=== PATIENT | male | born 1940 | race Asian ===

== ENCOUNTER 2021-11-30 09:02 | Outpatient (CLI) | payer OTHER | END 2021-11-30 21:44 | disposition home or self-care (01) | LOC: MCT 09:02 | PROVIDERS: ATTEND Family Medicine | DX: J32.0 Chronic maxillary sinusitis (principal); J32.2 Chronic ethmoidal sinusitis; I62.00 Nontraumatic subdural hemorrhage, unspecified | CPT/HCPCS: 70450 ==

== ENCOUNTER 2022-07-08 18:22 | Inpatient (IN) | payer OTHER ==
[~2022-07-08] VITALS: Ht 170.2 cm; Wt 75.9 kg
[2022-07-08] MEDS ORDERED: ACETAMINOPHEN 650 MG SUPP RC ONE (18:31)
[2022-07-08 18:34] VITALS: BP 128/75
[2022-07-08] MEDS ORDERED: NACL 0.9% 2,000 ML IV SCH (18:35)
[2022-07-08] MEDS ORDERED: cefTRIAXone 1,000 MG in DEXT 5% MINI-BAG PLUS 50 ML IV ONE (18:35)
[2022-07-08 19:18] LABS: BASOPHILS % (AUTO) 0.2 % (0.0-2.0); HEMATOCRIT 20.6 % (36-52); HEMOGLOBIN 7.1 g/dL (12.0-18.0); LYMPHOCYTES # (AUTO) 0.4 K/uL (2.0-11.5); LYMPHOCYTES % (AUTO) 7.9 % (20.5-51.1); MEAN CORPUSCULAR HEMOGLOBIN 29 pg (27-31); MEAN CORPUSCULAR HGB CONC 34 g/dL (33-37); MEAN CORPUSCULAR VOLUME 85.9 fL (80-94); MONOCYTES # (AUTO) 0.4 K/uL (0.8-1.0); NEUTROPHILS # (AUTO) 4.4 K/uL (1.8-7.7); NEUTROPHILS % (AUTO) 84.9 % (42.2-75.2); PLATELET COUNT (AUTO) 335 K/uL (140-450); RED CELL DISTRIBUTION WIDTH 14.7 % (11.6-13.7); WHITE BLOOD COUNT (AUTO) 5.2 K/uL (4.8-10.8)
[2022-07-08 19:50] LABS: ALBUMIN 2.6 g/dL (3.4-5.0); ANION GAP 21.3 (8-16); ASPARTATE AMINOTRANSFERASE 17 U/L (15-37); CHLORIDE 101 mmol/L (98-107); CREATININE 0.9 mg/dL (0.6-1.3); GLUCOSE 210 mg/dL (74-106); POTASSIUM 4.3 mmol/L (3.5-5.1); SODIUM SERUM 136 mmol/L (136-145); TOTAL BILIRUBIN 0.9 mg/dL (0.0-1.0); UREA NITROGEN, BLOOD 52 mg/dL (7-18)
[2022-07-08] MEDS ORDERED: cefTRIAXone 1,000 MG VIAL ONE (20:03)
[2022-07-08] MEDS ORDERED: NACL 0.9% 1,000 ML IV ONE (20:50)
[2022-07-08] MEDS ORDERED: DOCUSATE SODIUM 100 MG GELCAP PO PRN (21:35)
[2022-07-08] MEDS ORDERED: MORPHINE SULFATE 2 MG/ML SYR IVP PRN (21:35)
[2022-07-08] MEDS ORDERED: ZOLPIDEM 10 MG TAB PO PRN (21:35)
[2022-07-08] MEDS ORDERED: ACETAMINOPHEN 325 MG TAB PO PRN (21:35)
[2022-07-08] MEDS ORDERED: POTASSIUM CHLORIDE 10 MEQ TABER PO PRN (21:35)
[2022-07-08] MEDS ORDERED: MAG SULF 2000 MG/WATER PREMIX 50 ML IV PRN (21:35)
[2022-07-08] MEDS ORDERED: ONDANSETRON 4 MG/2 ML VIAL IVP PRN (21:35)
[2022-07-08 23:13] LABS: APPEARANCE,URINE CLEAR (CLEAR); BILIRUBIN,URINE NEGATIVE (NEGATIVE); BLOOD, URINE 2+ (NEGATIVE); COLOR,URINE YELLOW (YELLOW); LEUKOCYTE ESTERASE ,URINE 1+ (NEGATIVE); NITRITE, URINE NEGATIVE (NEGATIVE); PH,URINE 8.5 (5.0-9.0); UGLUCOSE TRACE (NEGATIVE)
[2022-07-08 23:30] LABS: RBC,URINE 0-5 /HPF (0-5)
[2022-07-09] MEDS ORDERED: ESCI10TA PO (05:14)
[2022-07-09] MEDS ORDERED: ACET-2619 PO (05:31)
[2022-07-09] MEDS ORDERED: FLEPED RC (05:31)
[2022-07-09] MEDS ORDERED: DEXT31GE2 PO (05:31)
[2022-07-09] MEDS ORDERED: AMLO10TA89 PO (05:31)
[2022-07-09] MEDS ORDERED: ATOR10TA PO (05:31)
[2022-07-09] MEDS ORDERED: LOSA100T1 PO (05:31)
[2022-07-09] MEDS ORDERED: METF-1139 PO (05:31)
[2022-07-09] MEDS ORDERED: D50SYR IV (05:31)
[2022-07-09] MEDS ORDERED: ASCO500T95 PO (05:31)
[2022-07-09] MEDS ORDERED: TRAV5SOL OP (05:31)
[2022-07-09] MEDS ORDERED: MULT-1328 PO (05:31)
[2022-07-09] MEDS ORDERED: BISA-213 RC (05:31)
[2022-07-09] MEDS ORDERED: GLIP10TE PO (05:31)
[2022-07-09] MEDS ORDERED: TAMS0.4C96 PO (05:31)
[2022-07-09] MEDS ORDERED: FERR325E14 PO (05:31)
[2022-07-09] MEDS ORDERED: MAGN400S60 PO (05:31)
[2022-07-09] MEDS ORDERED: DOCU-299 PO (05:31)
[2022-07-09] MEDS ORDERED: ZINC-31 (05:31)
[2022-07-09] MEDS ORDERED: ALOG1TAB6 PO (05:31)
[2022-07-09] MEDS ORDERED: NUTR30LI3 PO (05:31)
[2022-07-09] MEDS ORDERED: PIPERACILLIN/TAZOBACTAM 2.25 GM VIAL IV ONE (05:50)
[2022-07-09] MEDS: PIPERACILLIN/TAZOBACTAM 2.25 GM in DEXTROSE 5% 50 ML IV SCH ×3 (05:57→20:28)
[2022-07-09] MEDS ORDERED: LORazepam 2 MG/ML VIAL IVP SCH (06:40)
[2022-07-09] MEDS ORDERED: DEXTROSE 50% 50 ML SYR IVP PRN (07:30)
[2022-07-09 07:42] LABS: HEMATOCRIT 27.9 % (36-52); HEMOGLOBIN 9.4 g/dL (12.0-18.0); LYMPHOCYTES # (AUTO) 0.5 K/uL (2.0-11.5); LYMPHOCYTES % (AUTO) 4.8 % (20.5-51.1); MEAN CORPUSCULAR HEMOGLOBIN 29 pg (27-31); MEAN CORPUSCULAR HGB CONC 34 g/dL (33-37); MEAN CORPUSCULAR VOLUME 85.1 fL (80-94); MONOCYTES # (AUTO) 0.3 K/uL (0.8-1.0); MONOCYTES % (AUTO) 3.5 % (1.7-9.3); NEUTROPHILS # (AUTO) 8.8 K/uL (1.8-7.7); NEUTROPHILS % (AUTO) 91.7 % (42.2-75.2); PLATELET COUNT (AUTO) 333 K/uL (140-450); RED BLOOD CELL COUNT(AUTO) 3.27 MIL/uL (4.20-6.10); WHITE BLOOD COUNT (AUTO) 9.6 K/uL (4.8-10.8)
[2022-07-09 08:07] LABS: ANION GAP 23.8 (8-16); CARBON DIOXIDE 14.9 mmol/L (21-32); CHLORIDE 106 mmol/L (98-107); CREATININE 0.8 mg/dL (0.6-1.3); GLUCOSE 259 mg/dL (74-106); POTASSIUM 3.7 mmol/L (3.5-5.1); SODIUM SERUM 141 mmol/L (136-145); UREA NITROGEN, BLOOD 42 mg/dL (7-18)
[2022-07-09] MEDS ORDERED: ESCITALOPRAM 20 MG TAB PO SCH (09:00)
[2022-07-09] MEDS: NACL 0.9% 1,000 ML IV SCH ×2 (09:10→17:27)
[2022-07-09] MEDS: BLOOD GLUCOSE MONITORING 1 DEV DEV FS SCH ×4 (09:10→20:27)
[2022-07-09] MEDS: DOCUSATE SODIUM 100 MG GELCAP PO SCH ×2 (10:08→20:28)
[2022-07-09 12:00] VITALS: BP 96/60
[2022-07-09] MEDS: INSULIN LISPRO SLIDING SCALE 100 UNITS/ML VIAL SUBQ PRN ×3 (12:09→20:36)
[2022-07-09] MEDS ORDERED: VANCOMYCIN PER PHARMACY MC PRN (15:55)
[2022-07-09 16:00] VITALS: BP 97/58
[2022-07-09] MEDS ORDERED: MAG SULF 2000 MG/WATER PREMIX 50 ML IV SCH (16:20)
[2022-07-09] MEDS: VANCOMYCIN 1,000 MG in DEXTROSE 5% 250 ML IV SCH (17:01)
[2022-07-09 20:00] VITALS: BP 98/50
[2022-07-09] MEDS: TAMSULOSIN 0.4 MG CAP PO SCH (20:29)
[2022-07-09] MEDS: DEXT 5% / NACL 0.9% 1,000 ML IV SCH (20:53)
[2022-07-10] VITALS: BP 99/56
[2022-07-10 04:00] VITALS: BP 101/55
[2022-07-10] MEDS: PIPERACILLIN/TAZOBACTAM 2.25 GM in DEXTROSE 5% 50 ML IV SCH ×3 (04:40→23:33)
[2022-07-10] MEDS: BLOOD GLUCOSE MONITORING 1 DEV DEV FS SCH ×4 (06:37→21:00)
[2022-07-10] MEDS: INSULIN LISPRO SLIDING SCALE 100 UNITS/ML VIAL SUBQ PRN ×3 (06:38→16:57)
[2022-07-10] MEDS ORDERED: ALBUTEROL SULFATE/IPRATROPIU 3 ML SOL IH PRN (07:00)
[2022-07-10] MEDS: ALBUTEROL SULFATE/IPRATROPIU 3 ML SOL IH SCH ×3 (07:27→19:39)
[2022-07-10 07:28] LABS: ANION GAP 16.4 (8-16); BASOPHILS % (AUTO) 0.2 % (0.0-2.0); CARBON DIOXIDE 20.7 mmol/L (21-32); CHLORIDE 110 mmol/L (98-107); CREATININE 0.7 mg/dL (0.6-1.3); EOSINOPHILS % (AUTO) 0.3 % (0.0-4.0); GLUCOSE 214 mg/dL (74-106); HEMATOCRIT 25.4 % (36-52); HEMOGLOBIN 8.6 g/dL (12.0-18.0); LYMPHOCYTES # (AUTO) 0.6 K/uL (2.0-11.5); LYMPHOCYTES % (AUTO) 4.7 % (20.5-51.1); MEAN CORPUSCULAR HEMOGLOBIN 29 pg (27-31); MEAN CORPUSCULAR HGB CONC 34 g/dL (33-37); MEAN CORPUSCULAR VOLUME 84.9 fL (80-94); MONOCYTES # (AUTO) 0.6 K/uL (0.8-1.0); MONOCYTES % (AUTO) 4.5 % (1.7-9.3); NEUTROPHILS # (AUTO) 12.1 K/uL (1.8-7.7); NEUTROPHILS % (AUTO) 90.3 % (42.2-75.2); PLATELET COUNT (AUTO) 326 K/uL (140-450); POTASSIUM 3.1 mmol/L (3.5-5.1); RED BLOOD CELL COUNT(AUTO) 2.99 MIL/uL (4.20-6.10); SODIUM SERUM 144 mmol/L (136-145); UREA NITROGEN, BLOOD 34 mg/dL (7-18); WHITE BLOOD COUNT (AUTO) 13.4 K/uL (4.8-10.8)
[2022-07-10 08:00] VITALS: BP 118/73
[2022-07-10] MEDS ORDERED: DEXTROSE 50% 50 ML SYR IVP PRN (10:20)
[2022-07-10] MEDS ORDERED: KCL 20 MEQ/WATER INJ PREMIX 100 ML IV ONE (10:20)
[2022-07-10] MEDS: KCL 20 MEQ/WATER INJ PREMIX 100 ML IV SCH ×2 (10:30→10:40)
[2022-07-10] MEDS ORDERED: BLOOD GLUCOSE MONITORING 1 DEV DEV FS SCH (11:30)
[2022-07-10 12:00] VITALS: BP 122/74
[2022-07-10] MEDS ORDERED: DOCUSATE 100 MG/10 ML UDC PO PRN (12:05)
[2022-07-10 16:00] VITALS: BP 111/61
[2022-07-10] MEDS: DEXT 5% / NACL 0.9% 1,000 ML IV SCH (16:55)
[2022-07-10] MEDS: VANCOMYCIN 1,000 MG in DEXTROSE 5% 250 ML IV SCH (17:49)
[2022-07-10 20:00] VITALS: BP 111/67
[2022-07-10] MEDS: TAMSULOSIN 0.4 MG CAP PO SCH (21:00)
[2022-07-10] MEDS: DOCUSATE 100 MG/10 ML UDC GT SCH (21:00)
[2022-07-10] MEDS ORDERED: ESCITALOPRAM 20 MG TAB PO SCH (21:00)
[2022-07-11] VITALS: BP 114/78
[2022-07-11] MEDS: INSULIN LISPRO SLIDING SCALE 100 UNITS/ML VIAL SUBQ PRN ×5 (00:23→21:17)
[2022-07-11 04:00] VITALS: BP 120/82
[2022-07-11] MEDS: PIPERACILLIN/TAZOBACTAM 2.25 GM in DEXTROSE 5% 50 ML IV SCH ×3 (05:37→21:04)
[2022-07-11] MEDS: BLOOD GLUCOSE MONITORING 1 DEV DEV FS SCH ×4 (05:44→21:17)
[2022-07-11 07:18] LABS: BASOPHILS % (AUTO) 0.1 % (0.0-2.0); EOSINOPHILS % (AUTO) 0.2 % (0.0-4.0); HEMATOCRIT 26.4 % (36-52); HEMOGLOBIN 8.9 g/dL (12.0-18.0); LYMPHOCYTES # (AUTO) 0.6 K/uL (2.0-11.5); LYMPHOCYTES % (AUTO) 5.5 % (20.5-51.1); MEAN CORPUSCULAR HEMOGLOBIN 28 pg (27-31); MEAN CORPUSCULAR HGB CONC 34 g/dL (33-37); MEAN CORPUSCULAR VOLUME 84.5 fL (80-94); MONOCYTES # (AUTO) 0.6 K/uL (0.8-1.0); MONOCYTES % (AUTO) 5.1 % (1.7-9.3); NEUTROPHILS # (AUTO) 10.2 K/uL (1.8-7.7); NEUTROPHILS % (AUTO) 89.1 % (42.2-75.2); PLATELET COUNT (AUTO) 323 K/uL (140-450); RED BLOOD CELL COUNT(AUTO) 3.12 MIL/uL (4.20-6.10); WHITE BLOOD COUNT (AUTO) 11.5 K/uL (4.8-10.8)
[2022-07-11 07:30] LABS: ANION GAP 16.9 (8-16); CHLORIDE 111 mmol/L (98-107); CREATININE 0.5 mg/dL (0.6-1.3); GLUCOSE 181 mg/dL (74-106); SODIUM SERUM 147 mmol/L (136-145); UREA NITROGEN, BLOOD 19 mg/dL (7-18)
[2022-07-11 07:36] LABS: POTASSIUM 2.9 mmol/L (3.5-5.1)
[2022-07-11] MEDS: ALBUTEROL SULFATE/IPRATROPIU 3 ML SOL IH SCH ×3 (07:43→19:28)
[2022-07-11] MEDS: DOCUSATE 100 MG/10 ML UDC GT SCH ×2 (09:00→21:00)
[2022-07-11] MEDS: DEXT 5% / NACL 0.9% 1,000 ML IV SCH (10:39)
[2022-07-11] MEDS ORDERED: POTASSIUM CHLORIDE 40 MEQ, LIDOCAINE 1% 25 MG in NACL 0.9% 250 ML IV SCH (14:20)
[2022-07-11 14:58] LABS: ANION GAP 14.8 (8-16); CHLORIDE 112 mmol/L (98-107); CREATININE 0.7 mg/dL (0.6-1.3); GLUCOSE 225 mg/dL (74-106); SODIUM SERUM 148 mmol/L (136-145); UREA NITROGEN, BLOOD 17 mg/dL (7-18)
[2022-07-11 15:34] LABS: POTASSIUM 2.8 mmol/L (3.5-5.1)
[2022-07-11 16:00] VITALS: BP 120/70
[2022-07-11] MEDS: VANCOMYCIN 1,000 MG in DEXTROSE 5% 250 ML IV SCH (17:08)
[2022-07-11 20:00] VITALS: BP 105/53
[2022-07-11] MEDS: TAMSULOSIN 0.4 MG CAP PO SCH (21:00)
[2022-07-11] MEDS: FUROSEMIDE 20 MG/2 ML VIAL IVP SCH (21:00)
[2022-07-12] VITALS: BP 145/64
[2022-07-12 04:00] VITALS: BP 130/70
[2022-07-12] MEDS: PIPERACILLIN/TAZOBACTAM 2.25 GM in DEXTROSE 5% 50 ML IV SCH ×3 (04:28→21:20)
[2022-07-12 07:07] LABS: HEMATOCRIT 27.4 % (36-52); HEMOGLOBIN 9.3 g/dL (12.0-18.0); MEAN CORPUSCULAR HEMOGLOBIN 29 pg (27-31); MEAN CORPUSCULAR HGB CONC 34 g/dL (33-37); PLATELET COUNT (AUTO) 318 K/uL (140-450); RED BLOOD CELL COUNT(AUTO) 3.23 MIL/uL (4.20-6.10); RED CELL DISTRIBUTION WIDTH 15.4 % (11.6-13.7); WHITE BLOOD COUNT (AUTO) 7.7 K/uL (4.8-10.8)
[2022-07-12 07:12] LABS: ANION GAP 12.7 (8-16); CARBON DIOXIDE 22.5 mmol/L (21-32); CHLORIDE 113 mmol/L (98-107); CREATININE 0.6 mg/dL (0.6-1.3); GLUCOSE 208 mg/dL (74-106); POTASSIUM 3.2 mmol/L (3.5-5.1); SODIUM SERUM 145 mmol/L (136-145); UREA NITROGEN, BLOOD 12 mg/dL (7-18)
[2022-07-12] MEDS: ALBUTEROL SULFATE/IPRATROPIU 3 ML SOL IH SCH ×3 (07:27→19:00)
[2022-07-12] MEDS: BLOOD GLUCOSE MONITORING 1 DEV DEV FS SCH ×4 (07:40→21:56)
[2022-07-12] MEDS: INSULIN LISPRO SLIDING SCALE 100 UNITS/ML VIAL SUBQ PRN ×3 (07:41→20:44)
[2022-07-12 08:00] VITALS: BP 130/70
[2022-07-12 08:22] LABS: BASOPHILS % (AUTO) 0.2 % (0.0-2.0); EOSINOPHILS % (AUTO) 0.3 % (0.0-4.0); LYMPHOCYTES # (AUTO) 0.6 K/uL (2.0-11.5); LYMPHOCYTES % (AUTO) 7.8 % (20.5-51.1); MONOCYTES # (AUTO) 0.7 K/uL (0.8-1.0); MONOCYTES % (AUTO) 8.5 % (1.7-9.3); NEUTROPHILS # (AUTO) 6.5 K/uL (1.8-7.7); NEUTROPHILS % (AUTO) 83.2 % (42.2-75.2)
[2022-07-12 08:27] LABS: LYMPHOCYTES % (MANUAL) 12 % (20-46); MONOCYTES % (MANUAL) 10 % (5-12)
[2022-07-12] MEDS: DOCUSATE 100 MG/10 ML UDC GT SCH ×2 (08:56→09:05)
[2022-07-12] MEDS: FUROSEMIDE 20 MG/2 ML VIAL IVP SCH ×2 (08:58→21:54)
[2022-07-12] MEDS: DEXT 5% / NACL 0.9% 1,000 ML IV SCH (08:59)
[2022-07-12] MEDS: LORazepam 2 MG/ML VIAL IVP PRN (11:27)
[2022-07-12] MEDS ORDERED: POTASSIUM CHLORIDE 40 MEQ, LIDOCAINE 1% 25 MG in NACL 0.9% 250 ML IV SCH (11:30)
[2022-07-12 12:00] VITALS: BP 135/76
[2022-07-12] MEDS ORDERED: ACETYLCYSTEINE 20% (200 MG/ML) 200 MG/ML VIAL INH SCH (13:00)
[2022-07-12 16:50] VITALS: BP 138/71
[2022-07-12] MEDS: VANCOMYCIN 1,000 MG in DEXTROSE 5% 250 ML IV SCH (17:00)
[2022-07-12] MEDS: ACETYLCYSTEINE 20% (200 MG/ML) 200 MG/ML VIAL INH SCH (19:30)
[2022-07-12 20:00] VITALS: BP 125/65
[2022-07-12] MEDS: TAMSULOSIN 0.4 MG CAP PO SCH (21:00)
[2022-07-13 04:00] VITALS: BP 129/74
[2022-07-13] MEDS: DEXT 5% / NACL 0.9% 1,000 ML IV SCH (05:11)
[2022-07-13] MEDS: PIPERACILLIN/TAZOBACTAM 2.25 GM in DEXTROSE 5% 50 ML IV SCH ×2 (05:20→13:00)
[2022-07-13] MEDS: INSULIN LISPRO SLIDING SCALE 100 UNITS/ML VIAL SUBQ PRN (06:38)
[2022-07-13] MEDS: BLOOD GLUCOSE MONITORING 1 DEV DEV FS SCH ×4 (06:38→22:00)
[2022-07-13] MEDS: ACETYLCYSTEINE 20% (200 MG/ML) 200 MG/ML VIAL INH SCH ×2 (06:50→19:30)
[2022-07-13] MEDS: ALBUTEROL SULFATE/IPRATROPIU 3 ML SOL IH SCH ×3 (06:50→19:00)
[2022-07-13 07:52] LABS: BASOPHILS % (AUTO) 0.2 % (0.0-2.0); EOSINOPHILS # (AUTO) 0.1 K/uL (0-0.4); EOSINOPHILS % (AUTO) 0.6 % (0.0-4.0); HEMATOCRIT 29.2 % (36-52); HEMOGLOBIN 9.8 g/dL (12.0-18.0); LYMPHOCYTES # (AUTO) 0.8 K/uL (2.0-11.5); LYMPHOCYTES % (AUTO) 9.2 % (20.5-51.1); MEAN CORPUSCULAR HEMOGLOBIN 28 pg (27-31); MEAN CORPUSCULAR HGB CONC 34 g/dL (33-37); MONOCYTES # (AUTO) 0.9 K/uL (0.8-1.0); MONOCYTES % (AUTO) 10.9 % (1.7-9.3); NEUTROPHILS # (AUTO) 6.8 K/uL (1.8-7.7); NEUTROPHILS % (AUTO) 79.1 % (42.2-75.2); PLATELET COUNT (AUTO) 323 K/uL (140-450); RED BLOOD CELL COUNT(AUTO) 3.47 MIL/uL (4.20-6.10); RED CELL DISTRIBUTION WIDTH 15.3 % (11.6-13.7); WHITE BLOOD COUNT (AUTO) 8.6 K/uL (4.8-10.8)
[2022-07-13 08:08] LABS: ANION GAP 15.4 (8-16); CARBON DIOXIDE 24.4 mmol/L (21-32); CHLORIDE 111 mmol/L (98-107); CREATININE 0.7 mg/dL (0.6-1.3); GLUCOSE 174 mg/dL (74-106); SODIUM SERUM 148 mmol/L (136-145); UREA NITROGEN, BLOOD 10 mg/dL (7-18)
[2022-07-13 08:12] LABS: POTASSIUM 2.8 mmol/L (3.5-5.1)
[2022-07-13] MEDS: DOCUSATE 100 MG/10 ML UDC GT SCH ×2 (09:00→22:00)
[2022-07-13] MEDS: FUROSEMIDE 20 MG/2 ML VIAL IVP SCH ×2 (09:30→22:46)
[2022-07-13] MEDS ORDERED: KCL 20 MEQ/WATER INJ PREMIX 200 ML IV SCH (14:00)
[2022-07-13] MEDS: VANCOMYCIN 1,000 MG in DEXTROSE 5% 250 ML IV SCH (17:00)
[2022-07-13 20:00] VITALS: BP 138/80
[2022-07-13] MEDS: TAMSULOSIN 0.4 MG CAP PO SCH (22:00)
[2022-07-14] MEDS: DEXT 5% / NACL 0.9% 1,000 ML IV SCH ×2 (01:14→20:15)
[2022-07-14] MEDS: INSULIN LISPRO SLIDING SCALE 100 UNITS/ML VIAL SUBQ PRN ×2 (01:48→22:44)
[2022-07-14 04:00] VITALS: BP 123/76
[2022-07-14] MEDS: BLOOD GLUCOSE MONITORING 1 DEV DEV FS SCH ×4 (06:33→21:53)
[2022-07-14] MEDS: ALBUTEROL SULFATE/IPRATROPIU 3 ML SOL IH SCH ×3 (08:09→19:44)
[2022-07-14] MEDS: ACETYLCYSTEINE 20% (200 MG/ML) 200 MG/ML VIAL INH SCH ×2 (08:10→19:44)
[2022-07-14] MEDS: DOCUSATE 100 MG/10 ML UDC GT SCH ×2 (09:45→21:00)
[2022-07-14] MEDS: FUROSEMIDE 20 MG/2 ML VIAL IVP SCH ×2 (09:50→21:19)
[2022-07-14 11:47] LABS: ANION GAP 15.4 (8-16); CARBON DIOXIDE 27.5 mmol/L (21-32); CHLORIDE 111 mmol/L (98-107); CREATININE 0.6 mg/dL (0.6-1.3); GLUCOSE 129 mg/dL (74-106); SODIUM SERUM 151 mmol/L (136-145); UREA NITROGEN, BLOOD 10 mg/dL (7-18)
[2022-07-14 12:10] LABS: POTASSIUM 2.9 mmol/L (3.5-5.1)
[2022-07-14] MEDS ORDERED: VANCOMYCIN 1,000 MG in DEXTROSE 5% 250 ML IV SCH (17:00)
[2022-07-14 20:00] VITALS: BP 139/70
[2022-07-14] MEDS: TAMSULOSIN 0.4 MG CAP PO SCH (21:00)
[2022-07-14] MEDS ORDERED: PIPERACILLIN/TAZOBACTAM 3.375 GM VIAL IV ONE (21:14)
[2022-07-14] MEDS: PIPERACILLIN/TAZOBACTAM 3.375 GM in DEXTROSE 5% 50 ML IV SCH (21:18)
[2022-07-15 04:00] VITALS: BP 135/68
[2022-07-15] MEDS ORDERED: PIPERACILLIN/TAZOBACTAM 3.375 GM VIAL IV ONE (05:41)
[2022-07-15] MEDS: PIPERACILLIN/TAZOBACTAM 3.375 GM in DEXTROSE 5% 50 ML IV SCH ×3 (05:48→21:03)
[2022-07-15] MEDS: BLOOD GLUCOSE MONITORING 1 DEV DEV FS SCH ×4 (06:41→21:34)
[2022-07-15] MEDS: INSULIN LISPRO SLIDING SCALE 100 UNITS/ML VIAL SUBQ PRN ×2 (06:42→21:38)
[2022-07-15] MEDS: ALBUTEROL SULFATE/IPRATROPIU 3 ML SOL IH SCH ×3 (07:32→19:00)
[2022-07-15] MEDS: ACETYLCYSTEINE 20% (200 MG/ML) 200 MG/ML VIAL INH SCH ×2 (07:32→19:30)
[2022-07-15 08:02] LABS: BASOPHILS % (AUTO) 0.4 % (0.0-2.0); EOSINOPHILS # (AUTO) 0.1 K/uL (0-0.4); EOSINOPHILS % (AUTO) 0.7 % (0.0-4.0); HEMATOCRIT 29.9 % (36-52); HEMOGLOBIN 10.1 g/dL (12.0-18.0); LYMPHOCYTES # (AUTO) 1.1 K/uL (2.0-11.5); LYMPHOCYTES % (AUTO) 10.9 % (20.5-51.1); MEAN CORPUSCULAR HEMOGLOBIN 29 pg (27-31); MEAN CORPUSCULAR HGB CONC 34 g/dL (33-37); MEAN CORPUSCULAR VOLUME 84.8 fL (80-94); MONOCYTES # (AUTO) 1.1 K/uL (0.8-1.0); MONOCYTES % (AUTO) 10.7 % (1.7-9.3); NEUTROPHILS % (AUTO) 77.3 % (42.2-75.2); PLATELET COUNT (AUTO) 348 K/uL (140-450); RED BLOOD CELL COUNT(AUTO) 3.53 MIL/uL (4.20-6.10); RED CELL DISTRIBUTION WIDTH 15.3 % (11.6-13.7); WHITE BLOOD COUNT (AUTO) 10.4 K/uL (4.8-10.8)
[2022-07-15 08:13] LABS: ANION GAP 17.3 (8-16); CARBON DIOXIDE 27.5 mmol/L (21-32); CHLORIDE 108 mmol/L (98-107); CREATININE 0.7 mg/dL (0.6-1.3); GLUCOSE 185 mg/dL (74-106); SODIUM SERUM 150 mmol/L (136-145); UREA NITROGEN, BLOOD 10 mg/dL (7-18)
[2022-07-15 08:27] LABS: POTASSIUM 2.8 mmol/L (3.5-5.1)
[2022-07-15] MEDS: FUROSEMIDE 20 MG/2 ML VIAL IVP SCH ×2 (08:50→21:02)
[2022-07-15] MEDS: DOCUSATE 100 MG/10 ML UDC GT SCH ×2 (08:51→21:50)
[2022-07-15] MEDS ORDERED: MAG SULF 2000 MG/WATER PREMIX 50 ML IV PRN (09:30)
[2022-07-15] MEDS ORDERED: POTASSIUM CHLORIDE 20% 40 MEQ/15 ML UDC PO PRN (09:40)
[2022-07-15] MEDS ORDERED: KCL 20 MEQ/WATER INJ PREMIX 200 ML IV SCH (15:30)
[2022-07-15] MEDS: DEXT 5% / NACL 0.9% 1,000 ML IV SCH (16:48)
[2022-07-15] MEDS: VANCOMYCIN HCL 1.25 GM in DEXTROSE 5% 250 ML IV SCH (18:00)
[2022-07-15 18:15] LABS: ANION GAP 21.2 (8-16); CARBON DIOXIDE 23.7 mmol/L (21-32); CHLORIDE 106 mmol/L (98-107); CREATININE 0.7 mg/dL (0.6-1.3); GLUCOSE 181 mg/dL (74-106); SODIUM SERUM 148 mmol/L (136-145); UREA NITROGEN, BLOOD 12 mg/dL (7-18)
[2022-07-15 18:23] LABS: POTASSIUM 2.9 mmol/L (3.5-5.1)
[2022-07-15 20:00] VITALS: BP 117/61
[2022-07-15] MEDS: TAMSULOSIN 0.4 MG CAP PO SCH (21:00)
[2022-07-16 04:00] VITALS: BP 163/84
[2022-07-16] MEDS: PIPERACILLIN/TAZOBACTAM 3.375 GM in DEXTROSE 5% 50 ML IV SCH ×3 (05:58→20:39)
[2022-07-16] MEDS: DEXT 5% / NACL 0.9% 1,000 ML IV SCH (06:05)
[2022-07-16] MEDS: BLOOD GLUCOSE MONITORING 1 DEV DEV FS SCH ×4 (06:51→20:45)
[2022-07-16] MEDS: INSULIN LISPRO SLIDING SCALE 100 UNITS/ML VIAL SUBQ PRN ×2 (06:53→12:23)
[2022-07-16] MEDS: ALBUTEROL SULFATE/IPRATROPIU 3 ML SOL IH SCH ×3 (07:20→19:46)
[2022-07-16 08:05] LABS: BASOPHILS # (AUTO) 0.1 K/uL (0.00-0.22); BASOPHILS % (AUTO) 0.5 % (0.0-2.0); EOSINOPHILS # (AUTO) 0.1 K/uL (0-0.4); EOSINOPHILS % (AUTO) 1.1 % (0.0-4.0); HEMATOCRIT 33.6 % (36-52); HEMOGLOBIN 10.9 g/dL (12.0-18.0); LYMPHOCYTES # (AUTO) 1.2 K/uL (2.0-11.5); LYMPHOCYTES % (AUTO) 9.7 % (20.5-51.1); MEAN CORPUSCULAR HEMOGLOBIN 28 pg (27-31); MEAN CORPUSCULAR HGB CONC 33 g/dL (33-37); MEAN CORPUSCULAR VOLUME 85.1 fL (80-94); MONOCYTES # (AUTO) 1.2 K/uL (0.8-1.0); MONOCYTES % (AUTO) 9.4 % (1.7-9.3); NEUTROPHILS # (AUTO) 10.2 K/uL (1.8-7.7); NEUTROPHILS % (AUTO) 79.3 % (42.2-75.2); PLATELET COUNT (AUTO) 368 K/uL (140-450); RED BLOOD CELL COUNT(AUTO) 3.95 MIL/uL (4.20-6.10); RED CELL DISTRIBUTION WIDTH 15.5 % (11.6-13.7); WHITE BLOOD COUNT (AUTO) 12.9 K/uL (4.8-10.8)
[2022-07-16 08:46] LABS: CHLORIDE 106 mmol/L (98-107); CREATININE 0.9 mg/dL (0.6-1.3); GLUCOSE 193 mg/dL (74-106); SODIUM SERUM 149 mmol/L (136-145); UREA NITROGEN, BLOOD 11 mg/dL (7-18)
[2022-07-16] MEDS: FUROSEMIDE 20 MG/2 ML VIAL IVP SCH (09:00)
[2022-07-16] MEDS ORDERED: KCL 20 MEQ/WATER INJ PREMIX 200 ML IV SCH (11:55)
[2022-07-16] MEDS ORDERED: KCL 20 MEQ/WATER INJ PREMIX 100 ML IV ONE (12:08)
[2022-07-16] MEDS: LORazepam 2 MG/ML VIAL IVP PRN (12:35)
[2022-07-16] MEDS ORDERED: DEXTROSE 5% 1,000 ML IV SCH (12:45)
[2022-07-16] MEDS ORDERED: POTASSIUM CHLORIDE 20% 40 MEQ/15 ML UDC GT PRN (13:40)
[2022-07-16] MEDS ORDERED: MIDAZOLAM 5 MG/5 ML VIAL ONE (14:28)
[2022-07-16] MEDS ORDERED: fentaNYL citrate 0.05 MG/ML VIAL ONE (14:28)
[2022-07-16] MEDS ORDERED: POTASSIUM CHL 20 MEQ / DEXT 5% 1,000 ML IV SCH (14:45)
[2022-07-16] MEDS ORDERED: fentaNYL citrate 0.05 MG/ML VIAL IVP ONE (15:10)
[2022-07-16 16:00] VITALS: BP 139/78
[2022-07-16] MEDS: VANCOMYCIN HCL 1.25 GM in DEXTROSE 5% 250 ML IV SCH (17:19)
[2022-07-16] MEDS: DOCUSATE 100 MG/10 ML UDC PO SCH (20:36)
[2022-07-16] MEDS: TAMSULOSIN 0.4 MG CAP PO SCH (20:39)
[2022-07-16] MEDS ORDERED: POTASSIUM CHLORIDE 10 MEQ TABER PO SCH (21:00)
[2022-07-16 22:37] LABS: MAGNESIUM 1.9 mg/dL (1.8-2.4)
[2022-07-17 00:01] VITALS: BP 145/80
[2022-07-17] MEDS: BLOOD GLUCOSE MONITORING 1 DEV DEV FS SCH ×3 (05:41→16:30)
[2022-07-17] MEDS: INSULIN LISPRO SLIDING SCALE 100 UNITS/ML VIAL SUBQ PRN ×2 (05:41→11:36)
[2022-07-17 07:29] LABS: ANION GAP 11.6 (8-16); CHLORIDE 109 mmol/L (98-107); CREATININE 0.9 mg/dL (0.6-1.3); GLUCOSE 256 mg/dL (74-106); POTASSIUM 3.6 mmol/L (3.5-5.1); SODIUM SERUM 144 mmol/L (136-145); UREA NITROGEN, BLOOD 17 mg/dL (7-18)
[2022-07-17] MEDS: ALBUTEROL SULFATE/IPRATROPIU 3 ML SOL IH SCH ×2 (07:59→14:42)
[2022-07-17 08:00] VITALS: BP 145/75
[2022-07-17 08:49] LABS: BASOPHILS # (AUTO) 0.1 K/uL (0.00-0.22); BASOPHILS % (AUTO) 0.5 % (0.0-2.0); EOSINOPHILS # (AUTO) 0.2 K/uL (0-0.4); HEMATOCRIT 29.5 % (36-52); HEMOGLOBIN 9.8 g/dL (12.0-18.0); LYMPHOCYTES # (AUTO) 1.1 K/uL (2.0-11.5); LYMPHOCYTES % (AUTO) 7.6 % (20.5-51.1); MEAN CORPUSCULAR HEMOGLOBIN 28 pg (27-31); MEAN CORPUSCULAR HGB CONC 33 g/dL (33-37); MEAN CORPUSCULAR VOLUME 85.4 fL (80-94); MONOCYTES # (AUTO) 1.1 K/uL (0.8-1.0); MONOCYTES % (AUTO) 7.6 % (1.7-9.3); NEUTROPHILS # (AUTO) 12.4 K/uL (1.8-7.7); NEUTROPHILS % (AUTO) 83.3 % (42.2-75.2); PLATELET COUNT (AUTO) 322 K/uL (140-450); RED BLOOD CELL COUNT(AUTO) 3.46 MIL/uL (4.20-6.10); RED CELL DISTRIBUTION WIDTH 15.4 % (11.6-13.7); WHITE BLOOD COUNT (AUTO) 14.8 K/uL (4.8-10.8)
[2022-07-17] MEDS: DOCUSATE 100 MG/10 ML UDC PO SCH (09:17)
[2022-07-17] MEDS ORDERED: METO25TA PO (10:14)
[2022-07-17] MEDS ORDERED: AMIO200T66 PO (10:14)
[2022-07-17] MEDS ORDERED: FURO-572 PO (10:14)
[2022-07-17] MEDS ORDERED: LOSA100T1 PO (10:23)
[2022-07-17] MEDS ORDERED: METF-1253 PO (10:23)
[2022-07-17] MEDS ORDERED: AMLO10TA89 PO (10:23)
[2022-07-17] MEDS ORDERED: LEVAQUIN IV (10:26)
[2022-07-17 16:00] VITALS: BP 117/66
[2022-07-17] MEDS ORDERED: DOCUSATE 100 MG/10 ML UDC GT SCH (21:00)
== END 2022-07-17 18:40 | DRG 871 ==
LOC: MED 18:22 → MTU 21:27
PROVIDERS: ADMIT Family Medicine; ATTEND Family Medicine
PROC: 30233N1 Transfusion of Nonautologous Red Blood Cells into Peripheral Vein, Percutaneous Approach (ICD-10-PCS; principal; 2022-07-08)
PROC: 5A0935A Assistance with Respiratory Ventilation, Less than 24 Consecutive Hours, High Flow/Velocity Cannula (ICD-10-PCS; 2022-07-08)
PROC: 05HY33Z Insertion of Infusion Device into Upper Vein, Percutaneous Approach (ICD-10-PCS; 2022-07-14)
PROC: 0DH68UZ Insertion of Feeding Device into Stomach, Via Natural or Artificial Opening Endoscopic (ICD-10-PCS; 2022-07-16)
DX: A41.9 Sepsis, unspecified organism (principal); E43 Unspecified severe protein-calorie malnutrition; G93.41 Metabolic encephalopathy; J18.9 Pneumonia, unspecified organism; N17.0 Acute kidney failure with tubular necrosis; J96.01 Acute respiratory failure with hypoxia; N39.0 Urinary tract infection, site not specified; E87.0 Hyperosmolality and hypernatremia; E87.1 Hypo-osmolality and hyponatremia; E11.9 Type 2 diabetes mellitus without complications; I11.0 Hypertensive heart disease with heart failure; I50.9 Heart failure, unspecified; Z20.822 Contact with and (suspected) exposure to COVID-19; N40.0 Benign prostatic hyperplasia without lower urinary tract symptoms; D64.9 Anemia, unspecified; E86.0 Dehydration; R65.20 Severe sepsis without septic shock; E87.6 Hypokalemia; E78.5 Hyperlipidemia, unspecified; E83.42 Hypomagnesemia; Z86.73 Personal history of transient ischemic attack (TIA), and cerebral infarction without residual deficits; Z68.26 Body mass index [BMI] 26.0-26.9, adult
CPT/HCPCS: 36415; 36430; 70450; 71045; 80048; 80053; 80202; 81001; 82550; 82553; 82948; 83605; 83735; 83880; 84132; 84484; 85025; 86886; 86900; 86901; 86920; 87040; 87070; 87081; 87086; 87205; 89220; 92526; 93005; 94640; 96365; 96375; 99291; J0696; J1940; J2001; J2060; J2250; J2270; J2543; J3010; J3370; J3475; J3480; J7030; J7060; J7608; P9016; Q0092

== ENCOUNTER 2022-07-28 06:50 | Emergency (ER) | payer OTHER ==
[~2022-07-28] VITALS: Ht 167.6 cm; Wt 46.7 kg
[~2022-07-28 06:50] MED LIST: ACET-2619 PO; AMLO10TA89 PO; ASCO500T95 PO; ATOR10TA PO; BISA-213 RC; DOCU-299 PO; ESCI10TA PO; FERR325E14 PO; LEVAQUIN IV; LOSA100T1 PO; METF-1253 PO; MULT-1328 PO; NUTR30LI3 PO; TAMS0.4C96 PO; TRAV5SOL OP
--- NOTE | 2022-07-28 06:50 | NUR ---
(1451) FULL ARREST: Graham JOHNSTON,VICE PRESIDENT EDUCATION; Izaiah BROTHERSVICE PRESIDENT EDUCATION ATTENDING; ON OR ABOUT THIS TIME CPR, AMBU BAG; USING A GLIDESCOPE PATIENT SUCCESSFULLY INTUBATED BY DR. Shy ARIAS WITH AN ENDOTRACHEAL TUBE #7.5 SECURED AT 22cm TEETH/GUM LINE WITH AN ANCHOR FAST; VP CARDIOVASCULAR SERVICE LINE BALLOON INFLATED WITH 8CC AIR VIA A 10CC SYRINGE; ETT PLACEMENT CONFIRMED ETC02 DETECTOR - COLOR CHANGE YELLOW; GOOD CHEST RISE; AUSCULTATION TO BILATERAL LUNG STANLEY GOOD AERATION THROUGHOUT Addendum: 07/28/22 at 0725 by ROBERAT Shy ARIAS
--- NOTE | 2022-07-28 06:50 | NUR ---
PT TO BED AT 0648 ALS
[2022-07-28] MEDS ORDERED: EPINEPHrine PFS 0.1 MG/ML SYR IVP ONE (07:00)
--- NOTE | 2022-07-28 07:34 | NUR ---
[facility] CALLED AT THIS TIME, [place], [facility] STATES THEY WILL NOT BE MOVING FORWARD WITH THE PROCESS AT THIS TIME. #[id number]
--- NOTE | 2022-07-28 07:34 | NUR ---
ADDY WOOD HACKER WAS CONTACTED AT THIS TIME, NOTIFIED WE DO NOT HAVE A MORGUE, AWAITING CALL BACK #[id number]
--- NOTE | 2022-07-28 08:07 | NUR ---
81/M ENDER FROM [facility] IN FULL ARREST. PER EMS STAFF CALLED 911 STATING PATIENT FOUND UNRESPONSIVE AND PULSELESS AT 0554, LAST WELL KNOWN TIME AT 0450. UPON ARRIVAL PATIENT PULSELESS, CPR IN PROGRESS. 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 UPON ARRIVAL PATIENT IN ASYSTOLE, PATIENT PRONOUNCED BY DR. ARGUELLES AT 0708.
--- NOTE | 2022-07-28 08:23 | NUR ---
RECEIVED CALL BACK FROM [facility]ICE, S/W BRITTANY, REQUESTING MORE PATIENT INFORMATION. STATED SHE WILL CALL BACK
--- NOTE | 2022-07-28 08:48 | NUR ---
DR. ARGUELLES USING [employer] SCRAPE GATHERER FOR URDU TRANSLATION, SPEAKING WITH DAUGHTER AT THIS TIME. URDU SCRAPE GATHERER PAPI ID #[id number]
--- NOTE | 2022-07-28 09:35 | NUR ---
POLISH DISTRESSER, PAPI, ID #[id number] USED TO SPEAK WITH PATIENTS DAUGHTER SURAJ AND SON AT BEDSIDE. RETRIEVED MORTUARY INFORMATION AND ANSWERED ANY QUESTIONS FOR FAMILY.
--- NOTE | 2022-07-28 09:40 | NUR ---
RECEIVED CALL BACK FROM BRITTANY AT [facility], STATED PATIENTS BODY TO BE RELEASED. CASE #[id number]
--- NOTE | 2022-07-28 09:45 | NUR ---
S/W WILL FROM [facility], STATED THEY WILL SEND TRANSPORTER TO FOOD AND NUTRITION SERVICES SUPERVISOR BODY. ETA 2-3 HOURS, NOTIFIED MORTUARY WE DO NOT HAVE A MORGUE.
--- NOTE | 2022-07-28 10:44 | NUR ---
PER ASPHALT DAUBER JACK, PATIENT MOVED TO ROOM 128 TO AWAIT MORTUARY PICKUP FROM [facility].
--- NOTE | 2022-07-28 10:45 | NUR ---
ETA FOR MORTUARY [employer] MANAGER ENDORSED AND PACKET GIVEN TO TACTICAL AIR CONTROL PARTY JACK
== END 2022-07-28 07:08 ==
LOC: MED 06:50
DX: I46.9 Cardiac arrest, cause unspecified (principal); E11.9 Type 2 diabetes mellitus without complications; I10 Essential (primary) hypertension; Z79.899 Other long term (current) drug therapy; Z86.73 Personal history of transient ischemic attack (TIA), and cerebral infarction without residual deficits
CPT/HCPCS: 31500; 92950; 99291; J0171